=== PATIENT | male | born 1990 | race Hispanic/Latino ===

== ENCOUNTER 2018-07-06 21:14 | Emergency (ER) | payer OTHER, SELFPAY ==
[2018-07-06] MEDS ORDERED: Acetaminophen 325 MG TAB ONE (21:43)
[2018-07-06] MEDS ORDERED: Ibuprofen 200 MG TAB ONE (21:43)
[2018-07-06] MEDS ORDERED: Diazepam 5 MG TAB ONE (21:45)
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
== END 2018-07-06 22:24 | disposition home or self-care (01) ==
LOC: ERS 21:14
DX: S16.1XXA Strain of muscle, fascia and tendon at neck level, initial encounter (principal); B07.9 Viral wart, unspecified; V49.9XXA Car occupant (driver) (passenger) injured in unspecified traffic accident, initial encounter
CPT/HCPCS: 70450; 72125